=== PATIENT | male | born 1975 | race Caucasian/White ===

== ENCOUNTER 2018-04-25 23:57 | Emergency (ER) | payer MEDICAID ==
[~2018-04-25] VITALS: Ht 190.5 cm; Wt 104.3 kg
[2018-04-26] VITALS: Ht 190.5 cm; Wt 104.3 kg
[2018-04-26 02:59] VITALS: BP 118/75
== END 2018-04-26 02:59 | disposition home or self-care (01) ==
LOC: ED 23:57
DX: J40 Bronchitis, not specified as acute or chronic (principal); J06.9 Acute upper respiratory infection, unspecified; E11.8 Type 2 diabetes mellitus with unspecified complications; Z79.84 Long term (current) use of oral hypoglycemic drugs